=== PATIENT | female | born 1950 | race Caucasian/White ===

== ENCOUNTER 2023-08-23 11:59 | Emergency (ER) | payer MEDICARE, SELFPAY ==
--- NOTE | ~2023-08-23 | XR_ITS ---
Clinical Indication: Shortness of breath PA and lateral views of the chest: Comparison: None Findings: There is linear right basilar scarring or atelectasis, otherwise clear lungs. Cardiomedias tinal silhouette is within normal limits. Bones and soft tissues are unremarkable. Impression: Linear right basilar scarring or atelectasis, otherwise clear lungs. Reviewed, dictated and finalized at location . [employer] ART OBJECTS Impression: Linear right basilar scarring or atelectasis, otherwise clear lungs.
[2023-08-23 12:00] VITALS: BP 137/62; PULSE 85; RESP 20; TEMP 36.3; O2SAT 99
--- NOTE | 2023-08-23 12:03 | ECG_ITS ---
Measurements Intervals [place] Rate: 81 P: 54 WA: 155 QRS: 12 QRSD: 80 T: 69 QT: 352 QTc: 410 Interpretive Statements SINUS RHYTHM BASELINE ARTIFACT- II, III, AVF, V3 NORMAL ECG NO PREVIOUS ECG AVAILABLE FOR COMPARISON Electronically Signed On 08-23-2023 12:26:39 TERMINAL OPERATOR by Az Arellano D.O.
[2023-08-23 12:22] VITALS: RESP 15
[2023-08-23 12:35] LABS: Basophils Absolute Auto 0.1 K/mm3 (0.0-0.1); Basophils Percent Auto 1.2 % (0.2-1.2); Eosinophils Percent Auto 0.4 % (0-4.4); Hematocrit 26.1 % (37.0-47.0); Hemoglobin 8.6 g/dL (12.0-15.0); Immature Granulocyte Absolute 0.03 K/mm3 (0.00-0.031); Immature Granulocyte Percent A 0.6 % (0-0.5); Lymphocytes Absolute Auto 1.15 K/mm3 (0.9-3.2); Lymphocytes Percent Auto 23.7 % (18.3-44.2); Mean Corpuscular Hemoglobin 38.1 pg (26-34); Mean Corpuscular Volume 115.5 fl (80-100); Mean Platelet Volume 10.3 fl (7.4-10.4); Monocytes Absolute Auto 0.4 K/mm3 (0.1-0.6); Monocytes Percent Auto 8.9 % (2.6-8.5); Neutrophils Absolute Auto 3.2 K/mm3 (1.3-6.7); Neutrophils Percent Auto 65.2 % (45.5-73.1); Platelet Count Result 472 k/mm3 (150-375); Red Blood Count 2.26 M/mm3 (4.2-5.4); Red Cell Distribution Width 15.9 % (11.5-14.5); White Blood Count 4.9 K/mm3 (4.5-10.0)
[2023-08-23 12:42] LABS: Anisocytosis 2+ (NORMAL); Hypochromasia 1+ (NORMAL); Macrocytosis 1+ (NORMAL); Ovalocytes 1+ (NORMAL); Platelet Estimate Increased (Adequate)
[2023-08-23 12:43] LABS: Schistocytes None Seen (NORMAL); Tear Drop Cells 1+ (NORMAL)
--- NOTE | 2023-08-23 12:45 | ED.ARRPALP ---
HPI - Arrhythmia/Palpitations General Chief Complaint: Arrhythmia/Palpitations Stated Complaint: irreg heartbeat Time Seen by Provider: 08/23/23 12:10 History of Present Illness HPI narrative: Patient is a 73-year-old female with a history of MDS presenting with fast heart rate. Patient states that she was seen yesterday for her ?bloodshot?. She is unsure what the shot is but it is for her MDS. While she was there, she felt like her heart was racing and she checked her Apple watch which said her heart rate was greater than 100. No chest pain or shortness of breath. No lightheadedness or syncope. No leg swelling. Today she called her doctor who advised that she come get checked out as her hemoglobin was 7.7 on point of care yesterday. States that she was feeling anxious earlier today so she took half of an Ativan. Currently, her only complaint is mild fatigue. Related Data Allergies Allergy/AdvReac Type Severity Reaction Status Date / Time No Known Drug Allergies Allergy Verified 03/05/13 16:53 Review of Systems Review of Systems: All systems reviewed & are unremarkable except as noted in HPI and below Exam Narrative: GENERAL: Well-appearing, well-nourished, and in no acute distress. HEAD: Normocephalic, atraumatic. EYES: PERRLA and EOMI. ENT: Mucous membranes moist. NECK: Supple. CHEST: Clear to auscultation. No respiratory distress. HEART: Regular rate and rhythm. No murmur heard. Normal peripheral pulses. ABDOMEN: Soft, nontender, nondistended EXTREMITIES: Normal range of motion. No edema. SKIN: Warm, dry, no rash. NEURO: No focal deficits. Alert and oriented x3. PSYCH: Normal mood and affect. Course Vital Signs Vital signs: Vital Signs Temperature 97.4 F L 08/23/23 12:00 Pulse Rate 85 08/23/23 12:00 Respiratory Rate 20 08/23/23 12:00 Blood Pressure 137/62 08/23/23 12:00 Pulse Oximetry 99 08/23/23 12:00 Oxygen Delivery Room Air 08/23/23 12:00 Temperature 97.4 F L 08/23/23 12:00 Pulse Rate 71 08/23/23 14:16 Respiratory Rate 16 08/23/23 14:16 Blood Pressure 95/57 L 08/23/23 14:16 Pulse Oximetry 97 08/23/23 14:16 Oxygen Delivery Room Air 08/23/23 12:00 MDM - Arrhythmia/Palpitations MDM Narrative Medical decision making narrative: 73-year-old female presenting with palpitations. Vitals are stable. Exam is unremarkable. EKG per my interpretation shows normal sinus rhythm, no ST elevations or depressions. Blood work with a hemoglobin of 8.6, similar to her baseline. Remainder of blood work is unremarkable. Troponin is undetectable. Chest x-ray without acute abnormalities. Discussed reassuring workup with the patient. Feel she is safe for outpatient management. Patient is agreeable with this plan. Appropriate return precautions given. Advised PCP follow-up. Discharged in stable condition. Differential Diagnosis Differential diagnosis: Likely palpitations, anxiety, sinus tachycardia and artial fibrillation Lab Data Attestation: I reviewed the patient's lab results. 08/23/23 12:22 08/23/23 12:22 Labs: Lab Results 08/23/23 Range/Units 12:22 WBC 4.9 (4.5-10.0) K/mm3 RBC 2.26 L (4.2-5.4) M/mm3 Hgb 8.6 L (12.0-15.0) g/dL Hct 26.1 L (37.0-47.0) % MCV 115.5 H (80-100) fl MCH 38.1 H (26-34) pg MCHC 33.0 (32-36) g/dl RDW 15.9 H (11.5-14.5) % Plt Count 472 H (150-375) k/mm3 MPV 10.3 (7.4-10.4) fl Immature Gran % (Auto) 0.6 H (0-0.5) % Neut % (Auto) 65.2 (45.5-73.1) % Lymph % (Auto) 23.7 (18.3-44.2) % [place] % (Auto) 8.9 H (2.6-8.5) % Eos % (Auto) 0.4 (0-4.4) % Baso % (Auto) 1.2 (0.2-1.2) % Lymph # (Auto) 1.15 (0.9-3.2) K/mm3 [place] # (Auto) 0.4 (0.1-0.6) K/mm3 Eos # (Auto) 0.0 (0-0.3) K/mm3 Baso # (Auto) 0.1 (0.0-0.1) K/mm3 Abs Immat Gran (auto) 0.03 (0.00-0.031) K/mm3 Absolute Neuts (auto) 3.2 (1.3-6.7) K/mm3 Absolute Nucleated RBC 0.0 (0.0-0.012) K/mm
[2023-08-23 12:46] LABS: Alanine Aminotransferase 23 U/L (6-35); Albumin Level 4.4 g/dL (3.5-5.1); Alkaline Phosphatase 98 U/L (38-126); Anion Gap 9 mmol/L (8-16); Aspartate Amino Transferase 27 U/L (14-36); Bilirubin,Total 2.2 mg/dL (0.2-1.3); Blood Urea Nitrogen 14 mg/dL (7-17); Calcium 9.3 mg/dL (8.4-10.2); Carbon Dioxide 26 mmol/L (22-30); Chloride 104 mmol/L (98-107); Estimated CRCL calculation 61 ml/min; Estimated Glomerular Filt Rate > 60; Glucose 185 mg/dL (65-110); Lipase 20 U/L (23-300); Partial Thromboplastin Time 28.4 SECONDS (22.3-36.8); Potassium 4.1 mmol/L (3.4-5.0); Prothrombin Time 13.7 Seconds (11.1-14.7); Sodium 139 mmol/L (137-145)
[2023-08-23 12:59] LABS: Troponin I < 0.012 ng/mL (0.000-0.034)
[2023-08-23 14:16] VITALS: BP 95/57; PULSE 71; RESP 16; O2SAT 97
== END 2023-08-23 14:17 | disposition home or self-care (01) ==
PROVIDERS: Emergency Medicine; Emergency Provider Emergency Medicine
DX: R00.2 Palpitations (principal); F41.9 Anxiety disorder, unspecified; D46.9 Myelodysplastic syndrome, unspecified
CPT/HCPCS: 36415; 71046; 80053; 83690; 84484; 85025; 85610; 85730; 93005; 99284